=== PATIENT | male | born 1975 | race Caucasian/White ===

== ENCOUNTER → 2019-08-07 | Outpatient (CLI) | payer BC ==
[2019-08-07 08:58] LABS: INR 2.1 (<1.2); Prothrombin Time 20.4 sec (9.0-12.0)
== END | disposition home or self-care (01) ==
LOC: LABWHC1 08:33
PROVIDERS: ATTEND Dentist Oral and Maxillofacial Surgery
DX: D68.9 Coagulation defect, unspecified (principal)
CPT/HCPCS: 36415; 85610

== ENCOUNTER → 2022-02-22 | Outpatient (CLI) | payer MEDICAID ==
[2022-02-22 16:18] LABS: INR 2.2 (<1.2); Prothrombin Time 21.6 sec (9.0-12.0)
== END | disposition home or self-care (01) ==
LOC: LABWHC1 15:01
PROVIDERS: ATTEND Dentist Oral and Maxillofacial Surgery
DX: Z00.00 Encounter for general adult medical examination without abnormal findings (principal)
CPT/HCPCS: 36415; 85610